=== PATIENT | female | born 1995 | race Two or more races ===

== ENCOUNTER 2019-05-12 03:39 | Emergency (ER) | payer BC, MEDICAID ==
[2019-05-12] MEDS ORDERED: ACETAMINOPHEN 325 MG TABLET PO ONE (05:14)
[2019-05-12] MEDS ORDERED: LIDOCAINE 2% JELLY 5 ML TUBE TOP ONE (05:14)
--- NOTE | 2019-05-12 05:45 | ER Document Report ---
HPI - HPI Patient complains to provider of: Foreign body in left ear Time Seen by Provider: 05/12/19 05:09 Pain Level: 5 Context: Patient is a 24-year-old female presents to the emergency department with complaints of bug in her left ear. Patient states she woke up and felt like there is something in her ear. Patient voices she can feel it moving it is hitting her eardrum. Patient voices it "hurts so much." Patient is crying in pain. Patient voices no medical problems, takes a daily medications, has no allergies. - CONSTITUTIONAL Constitutional: DENIES: Fever, Chills - EENT EENT: REPORTS: Ear Pain - REPRODUCTIVE Reproductive: DENIES: : Past Medical History - General Information source: Patient - Social History Smoking Status: Never Smoker Chew tobacco use (# tins/day): No Frequency of alcohol use: Social Drug Abuse: None Family History: Reviewed & Not Pertinent Patient has suicidal ideation: No Patient has homicidal ideation: No Vertical Provider Document - CONSTITUTIONAL Agree With Documented VS: Yes Notes: GENERAL: Alert, interacts well. HEAD: Normocephalic, atraumatic. EYES: Pupils equal, round, and reactive to light. Extraocular movements intact. ENT: Oral mucosa moist, tongue midline. Nares patent, foreign body which appears to be an insect in the left ear canal. NECK: Full range of motion. Supple. Trachea midline. LUNGS: Clear to auscultation bilaterally, no wheezes, rales, or rhonchi. No respiratory distress. HEART: Regular rate and rhythm. No murmur ABDOMEN: Soft, non-tender. Non-distended. Bowel sounds present in all 4 quadrants. EXTREMITIES: Moves all 4 extremities spontaneously. No edema, normal radial and dorsalis pedis pulses bilaterally. No cyanosis. BACK: no cervical, thoracic, lumbar midline tenderness. No saddle anesthesia, normal distal neurovascular exam. NEUROLOGICAL: Alert and oriented x3. Normal speech. cranial nerves II through XII grossly intact. PSYCH: Normal affect, normal mood. SKIN: Warm, dry, normal turgor. No rashes or lesions noted. - INFECTION CONTROL TRAVEL OUTSIDE OF THE [place] IN LAST 30 DAYS: No Course - Re-evaluation Re-evalutation: Lidocaine jelly was placed in the left ear to attempt to numb the canal and kill potential bug. The ear was irrigated multiple times with approximately 1 L of fluid. Small bits of debris were expressed although does not appear the entire insect was expressed. Patient was complaining of generalized pain to the left ear canal said no other interventions were performed. Discussed with her close follow-up with her ear nose and throat doctors. Also discussed prophylactic ear antibiotics. Patient voices understanding, stable for discharge. - Vital Signs Vital signs: Temp Pulse Resp BP Pulse Ox 97.3 F 116 H 153/98 H 99 05/12/19 03:45 05/12/19 03:58 05/12/19 03:45 05/12/19 03:45 Discharge - Discharge Clinical Impression: Foreign body in left ear Qualifiers: Encounter type: initial encounter Qualified Code(s): T16.2XXA - Foreign body in left ear, initial encounter Condition: Stable Disposition: HOME, SELF-CARE Additional Instructions: As we discussed you have been seen and treated in the emergency department for an insect in your left ear. Unfortunately were unable to express the entire insect. Please follow-up with the ear nose and throat doctor on Monday. Phone numbers will be provided in this packet. Please take [id number] Tylenol and Motrin for generalized pain. Please use antibiotic eardrops as we discussed. Please return to the emergency department for any concerns. Forms: Return to Work Referrals: LUIS GUERRERO DO [ASSOCIATE] - Follow up as needed
[2019-05-12] MEDS ORDERED: CIPROFLOXACIN HCL/DEXAMETH OTIC DROP 7.5 ML AS ONE (06:46)
[2019-05-12 07:02] VITALS: BP 121/78
== END 2019-05-12 07:02 | disposition home or self-care (01) ==
LOC: ER 03:39
DX: T16.2XXA Foreign body in left ear, initial encounter (principal); H92.02 Otalgia, left ear; X58.XXXA Exposure to other specified factors, initial encounter
CPT/HCPCS: 99282; J3490